=== PATIENT | male | born 1965 | race Two or more races ===

== ENCOUNTER 2023-05-07 11:23 | Emergency (ER) | payer OTHER ==
[~2023-05-07] VITALS: Ht 160 cm; Wt 57.0 kg
[2023-05-07 13:00] VITALS: BP 179/98; PULSE 95; RESP 18; TEMP 99.1; O2SAT 100
[2023-05-07] MEDS ORDERED: HYDROcodone-ACET 10/325MG TAB PO ONE (13:00)
[2023-05-07] MEDS ORDERED: AMOX500T3 PO (13:26)
== END 2023-05-07 13:26 | disposition home or self-care (01) ==
LOC: ER 11:23
DX: K08.89 Other specified disorders of teeth and supporting structures (principal)